=== PATIENT | male | born 1980 | race Caucasian/White ===

== ENCOUNTER → 2024-09-29 09:28 | Outpatient (REF) | payer OTHER, SELFPAY | LOC: RAD 09:28 | PROVIDERS: ATTENDING PHYSICIAN Nurse Practitioner Adult Health | DX: M25.561 Pain in right knee (principal) | CPT/HCPCS: 73564 ==

== ENCOUNTER → 2024-10-10 06:41 | Outpatient (REF) | payer OTHER, SELFPAY | LOC: PAVMRI 06:41 | PROVIDERS: ATTENDING PHYSICIAN Orthopaedic Surgery; FAMILY PHYSICIAN Family Medicine | DX: M25.561 Pain in right knee (principal) | CPT/HCPCS: 73721 ==

== ENCOUNTER 2024-11-10 06:29 | Day surgery (SDC) | payer OTHER, SELFPAY ==
[2024-11-10] VITALS (9 sets, daily range): BP systolic 122–138; BP diastolic 85–99; BMI 34.2
[2024-11-10] MEDS: CELEBREX 200 MG PO (09:44)
[2024-11-10] MEDS: TYLENOL 1000 MG PO (09:44)
[2024-11-10] MEDS: NORMOSOL-R/PLASMALYTE-A 1000 IV (09:56)
== END 2024-11-10 12:32 | disposition home or self-care (01) ==
LOC: SDS 06:29
PROVIDERS: ATTENDING PHYSICIAN Orthopaedic Surgery
DX: S83.241A Other tear of medial meniscus, current injury, right knee, initial encounter (principal); M17.11 Unilateral primary osteoarthritis, right knee; X58.XXXA Exposure to other specified factors, initial encounter
CPT/HCPCS: 29881

== ENCOUNTER 2025-10-22 09:52 | Emergency (ER) | payer OTHER, SELFPAY ==
[2025-10-22 09:54] VITALS: BP 133/81
--- NOTE | 2025-10-22 11:14 | ED.GENMED ---
History of Present Illness
General
Chief Complaint: Musculo-Skeletal Complaint
Time Seen by Provider: 10/22/25 10:46
History of Present Illness
History of Present Illness:
45-year-old male with prior history of right meniscal injury presenting with left knee pain. Patient reports some generalized knee pain in the past week. Yesterday when he was getting out of his truck, he heard a pop when he twisted his knee. He
has since had difficulty ambulating and has felt laxity to his joint. Denies numbness or tingling. He tried calling his orthopedic doctor, was advised to come to the ER, because no appointments available today. Has been taking Motrin with minimal
pain relief. Has also been using crutches. Denies any fever. Denies any direct trauma. Denies additional acute medical complaints
Past History
Past History
ED Past Medical History: Other (Covid 02/2021 on Metoprolol and Corlanor for [place] Covid w tachycardia 04/2021)
ED Past Surgical History: None
Social History
Tobacco: Non-smoker
Alcohol: Occasional
Personal:
Living: with family
Employment: Not employed
Phy Exam
Physical Exam
Physical Exam:
General: Well-appearing, no clinical signs of dehydration, nontoxic and in no acute distress
HEENT: protecting airway
Neck: appears supple
CV: Normal heart rate
Resp: No accessory muscle use, no increased work of breathing
Abd: No distention
Extremities: No deformities, no swelling. No tenderness on palpation externally with no swelling or erythema. Generalized discomfort with range of motion testing. Distal sensation and pulses intact.
Neuro: alert, no focal neurologic deficit
: deferred
Rectal: deferred
Psych: Normal affect
Skin: Intact
Course
Orders/Labs/Results
Orders:
Orders
10/22/25 09:57
CR Knee - Left 4 Or More View* Urgent
Comment:
Reason For Exam: Injury
10/22/25 11:13
Crutches-Treatment ONCE
Knee Immobilizer Left-Treatmen ONCE
Vital Signs
Initial and Last Documented VS:
Initial Vital Signs
Temp Pulse Resp BP Pulse Ox
98.5 F 90 16 133/81 97
10/22/25 09:54 10/22/25 09:54 10/22/25 09:54 10/22/25 09:54 10/22/25 09:54
Last Documented Vital Signs
Temp Pulse Resp BP Pulse Ox
98.5 F 90 16 133/81 97
10/22/25 09:54 10/22/25 09:54 10/22/25 09:54 10/22/25 09:54 10/22/25 11:17
MDM/Problems Addressed
MDM/Problems Addressed:
45-year-old male presenting with left knee pain. Vital signs are normal.
On exam patient is resting comfortably, no acute distress. Externally, no swelling or deformity. No report of any direct trauma without concern for fracture or malalignment. Distal sensation and pulses intact without any concern for neurovascular
compromise. No infectious findings were infectious concerns. Suspect meniscal injury given location of pain, popliteal, with mechanism of injury, twisting. Also noted to have meniscal issues in the past. Will place patient in a knee immobilizer
and provide crutches. Patient arrives with children's crutches. Will send prescription for Percocet, however advised that he continue to use Motrin as his mainstay of pain control. Advised that he call Dr. Noyola for follow-up appointment.
Return precautions discussed and patient verbalized understanding
*Pulse Oximetry
SaO2: 97
Oxygen Mode of Delivery: Room air
Patient hypoxic: no
*Critical Care Note
Total Time (30-74mins, 75-104mins- exclusive of procedures): Not Applicable
ED Attending Note
-
Portions of this chart may have been created with voice recognition software.� Occasional wrong word or��sound alike� substitutions may have occurred due to the inherent limitations of voice recognition software.
Discharge Plan
Departure
Prescriptions:
No Action
propranolol 10 mg Tablet
10 mg PO PRN PRN (Reason: prior to public speaking)
Referrals:
Torie Starr MD [Family Provider, [facility]]
Discharge Date and Time
Print Language: SYRIAC
== END 2025-10-22 12:02 | disposition home or self-care (01) ==
LOC: EMR 09:52
PROVIDERS: EMERGENCY PHYSICIAN Student in an Organized Health Care Education/Training Program; FAMILY PHYSICIAN Family Medicine
DX: M25.562 Pain in left knee (principal); X50.1XXA Overexertion from prolonged static or awkward postures, initial encounter
CPT/HCPCS: 99283; 29505; 73564